=== PATIENT | male | born 1995 | race Caucasian/White ===

== ENCOUNTER → 2017-10-30 | Emergency (ER) | payer OTHER ==
[~2017-10-30] VITALS: Ht 170.2 cm; Wt 86.2 kg
[~2017-10-30] MED LIST: KETO10TA2 PO
== END | disposition left against medical advice (07) ==
LOC: ER 19:44
DX: Z53.20 Procedure and treatment not carried out because of patient's decision for unspecified reasons (principal)

== ENCOUNTER 2021-10-12 20:41 | Emergency (ER) | payer OTHER ==
[~2021-10-12] VITALS: Ht 172.7 cm; Wt 108.9 kg
[2021-10-12] MEDS ORDERED: SKELAXIN800 MG PO (23:47)
[2021-10-12] MEDS ORDERED: CELEBREX200MG PO (23:47)
== END 2021-10-13 00:08 | disposition home or self-care (01) ==
LOC: ER 20:41
DX: M54.9 Dorsalgia, unspecified (principal)

== ENCOUNTER 2022-04-25 11:36 | Emergency (ER) | payer OTHER ==
[~2022-04-25] VITALS: Ht 172.7 cm; Wt 99.8 kg
[~2022-04-25 11:36] MED LIST changes: +CELEBREX200MG PO; +SKELAXIN800 MG PO
[2022-04-25] MEDS ORDERED: CIPRO500 MG PO (15:28)
== END 2022-04-25 16:23 | disposition home or self-care (01) ==
LOC: ER 11:36
DX: N39.0 Urinary tract infection, site not specified (principal); Z91.010 Allergy to peanuts; Z20.822 Contact with and (suspected) exposure to COVID-19

== ENCOUNTER 2025-04-04 12:06 | Emergency (ER) | payer OTHER ==
[~2025-04-04] VITALS: Ht 172.7 cm; Wt 104.3 kg
[~2025-04-04 12:06] MED LIST changes: +CIPRO500 MG PO
[2025-04-04] MEDS ORDERED: CEFTRIAXONE SODIUM 1,000 MG VIAL ONE (13:02)
[2025-04-04] MEDS ORDERED: DIPHTH,PERTUSS(ACELL),TET VAC 0.5 ML SYRINGE IM ONE (13:02)
[2025-04-04] MEDS ORDERED: PEPCID AC20 MG PO (13:02)
[2025-04-04] MEDS ORDERED: CEFUROXIME500 MG PO (13:02)
[2025-04-04] MEDS ORDERED: CEFTRIAXONE SODIUM 1,000 MG VIAL IM ONE (13:15)
[2025-04-04] MEDS ORDERED: TETANUS & DIPHTHERIA TOX,ADULT 0.5 ML VIAL IM ONE (13:15)
== END 2025-04-04 13:23 | disposition home or self-care (01) ==
LOC: ER 12:06
DX: S61.215A Laceration without foreign body of left ring finger without damage to nail, initial encounter (principal); X58.XXXA Exposure to other specified factors, initial encounter; Y93.89 Activity, other specified; Y92.89 Other specified places as the place of occurrence of the external cause; Y99.9 Unspecified external cause status; Z91.018 Allergy to other foods